=== PATIENT | male | born 1965 | race Hispanic/Latino ===

== ENCOUNTER → 2016-10-05 | Emergency (ER) | payer SELFPAY ==
[~2016-10-05] MED LIST: ATIVAN IM PRN; BENTYL PO PRN; D5/0.45NS 1,000 ML IV SCH; D50W (25GM) Vial IV PRN; D5LR 1,000 ML IV SCH; LIBRIUM PO PRN; NACL 0.9% 1000 ML 1,000 ML IV ONE; TYLENOL PO PRN; VITAMIN B-1 100 MG, FOLVITE 1 MG, INFUVITE 10 ML in NACL 0.9% 1000 ML 1,000 ML IV ONE; ZOFRAN IV PRN
--- NOTE | 2016-10-05 17:02 | Emergency Department Report ---
ED General Adult HPI - General Chief complaint: Alcohol Stated complaint: ALTERED MENTAL STATUS Time Seen by Provider: 10/05/16 17:00 Source: patient, EMS (ems notes not available at time of chart dictation) Mode of arrival: Stretcher Limitations: Other (patient is intoxicated) - History of Present Illness Initial comments: This is a 51-year-old male. He is previously unknown to me. He is brought to the hospital by EMS for alcohol intoxication. Patient reports he was drinking in a hotel room. He denies headache, neck pain, chest pain, abdominal pain, shortness of breath, irritated obstructive urinary symptoms. He denies homicidality and suicidality. -: unknown Consistency: constant Improves with: none Worsens with: none Associated Symptoms: denies other symptoms - Related Data Allergies Allergy/AdvReac Type Severity Reaction Status Date / Time No Known Allergies Allergy Unverified 10/05/16 18:33 ED Review of Systems ROS: Stated complaint: ALTERED MENTAL STATUS Other details as noted in HPI Constitutional: malaise. denies: fever Eyes: denies: vision change ENT: denies: hearing loss Respiratory: denies: cough Cardiovascular: denies: chest pain Gastrointestinal: denies: abdominal pain Genitourinary: denies: dysuria Musculoskeletal: denies: back pain Skin: denies: lesions Neurological: denies: weakness Psychiatric: anxiety, depression. denies: homicidal thoughts, suicidal thoughts ED Physical Exam - General Limitations: Other (alcohol intoxication) General appearance: alert, in no apparent distress - Head Head exam: Present: atraumatic, normocephalic - Eye Eye exam: Present: normal appearance, PERRL, EOMI. Absent: nystagmus - ENT ENT exam: Present: normal exam, normal orophraynx, mucous membranes moist, normal external ear exam - Neck Neck exam: Present: normal inspection, full ROM. Absent: tenderness, meningismus - Respiratory Respiratory exam: Present: normal lung sounds bilaterally. Absent: respiratory distress, wheezes, rales, rhonchi, stridor, chest wall tenderness - Cardiovascular Cardiovascular Exam: Present: regular rate, normal rhythm, normal heart sounds. Absent: bradycardia, tachycardia, irregular rhythm, systolic murmur, diastolic murmur, rubs, gallop - GI/Abdominal GI/Abdominal exam: Present: soft, normal bowel sounds. Absent: distended, tenderness, guarding, rebound, rigid, pulsatile mass - Rectal Rectal exam: Present: deferred - Extremities Exam Extremities exam: Present: normal inspection, full ROM, normal capillary refill. Absent: pedal edema, joint swelling, calf tenderness - Back Exam Back exam: Present: normal inspection, full ROM. Absent: tenderness, CVA tenderness (R), CVA tenderness (L), muscle spasm, paraspinal tenderness, vertebral tenderness - Neurological Exam Neurological exam: Present: alert, oriented X3, normal gait, other (Extraocular movements intact. Tongue midline. No facial droop. Facial sensation intact to light touch in the V1, V2, V3 distribution bilaterally. 5 and 5 strength in 4 extremities.. Sensation is intact to light touch in 4 extremities.). Absent : motor sensory deficit - Psychiatric Psychiatric exam: Present: normal affect, normal mood. Absent: homicidal ideation, suicidal ideation - Skin Skin exam: Present: warm, dry, intact, normal color. Absent: rash ED Course Vital Signs 10/05/16 10/05/16 10/05/16 16:52 17:23 17:30 Temperature Pulse Rate 72 73 Respiratory 21 14 13 Rate Blood Pressure 155/95 155/98 Blood Pressure [Left] O2 Sat by Pulse 95 95 94 Oximetry 10/05/16 10/05/16 10/05/16 17:33 17:34 18:00 Temperature 98.3 F Pulse Rate 78 74 Respiratory 19 19 16 Rate Blood Pressure 140/95 Blood Pressure 155/98 [Left] O2 Sat by Pulse 95 95 94 Oximetry 10/05/16 10/05/16 10/05/16 18:30 19:00 19:30 Temperature Pulse Rate 80 60 81 Respiratory 14 12 18 Rate Blood Pressure 140/95 147/95 140/95 Blood Pressure 147/95 [Left] O2 Sat by Pulse 93 97 97 Oximetry 10/05/16 10/05/16 10/05/16 20:00 21:00 22:00 Temperature Pulse Rate 86 Respiratory 11 L Rate Blood Pressure 156/101 143/86 159/102 Blood Pressure [Left] O2 Sat by Pulse 86 99 Oximetry 10/05/16 10/06/16 10/06/16 23:00 00:00 01:00 Temperature Pulse Rate 78 85 91 H Respiratory 16 15 15 Rate Blood Pressure 151/90 155/89 155/89 Blood Pressure [Left] O2 Sat by Pulse 96 96 96 Oximetry 08/17/17 08/17/17 08/17/17 02:00 03:00 03:30 Temperature Pulse Rate 82 92 H 83 Respiratory 17 14 15 Rate Blood Pressure 134/77 158/78 144/81 Blood Pressure [Left] O2 Sat by Pulse 95 96 95 Oximetry 10/06/16 10/06/16 10/06/16 03:46 04:00 04:16 Temperature Pulse Rate 72 81 84 Respiratory 13 20 18 Rate Blood Pressure 144/81 145/84 145/84 Blood Pressure [Left] O2 Sat by Pulse 96 95 96 Oximetry 10/06/16 10/06/16 10/06/16 04:30 04:46 05:00 Temperature Pulse Rate 76 79 76 Respiratory 20 15 16 Rate Blood Pressure 142/79 142/79 147/85 Blood Pressure [Left] O2 Sat by Pulse 95 95 97 Oximetry 10/06/16 10/06/16 10/06/16 05:16 05:30 05:46 Temperature Pulse Rate 77 84 93 H Respiratory 20 18 16 Rate Blood Pressure 147/85 147/85 136/86 Blood Pressure [Left] O2 Sat by Pulse 95 97 98 Oximetry 10/06/16 10/06/16 10/06/16 06:00 06:16 06:30 Temperature Pulse Rate 75 71 72 Respiratory 17 19 17 Rate Blood Pressure 144/90 144/90 144/81 Blood Pressure [Left] O2 Sat by Pulse 97 96 97 Oximetry 10/06/16 10/06/16 10/06/16 06:46 07:00 07:16 Temperature Pulse Rate 68 68 72 Respiratory 16 17 14 Rate Blood Pressure 144/81 128/79 128/79 Blood Pressure [Left] O2 Sat by Pulse 95 96 97 Oximetry 10/06/16 10/06/16 10/06/16 07:30 07:46 08:00 Temperature Pulse Rate 74 71 65 Respiratory 12 19 16 Rate Blood Pressure 128/79 152/86 146/86 Blood Pressure [Left] O2 Sat by Pulse 96 97 94 Oximetry 10/06/16 10/06/16 10/06/16 08:16 08:30 08:46 Temperature Pulse Rate 66 63 Respiratory 14 14 17 Rate Blood Pressure 146/86 135/79 146/86 Blood Pressure [Left] O2 Sat by Pulse 97 98 96 Oximetry 10/06/16 10/06/16 10/06/16 09:00 09:16 09:30 Temperature Pulse Rate Respiratory 17 12 14 Rate Blood Pressure 150/77 135/79 137/89 Blood Pressure [Left] O2 Sat by Pulse 97 98 96 Oximetry 10/06/16 10/06/16 10/06/16 09:46 10:00 10:16 Temperature Pulse Rate Respiratory 15 14 17 Rate Blood Pressure 137/89 144/88 144/88 Blood Pressure [Left] O2 Sat by Pulse 96 95 96 Oximetry 10/06/16 10/06/16 10:30 10:44 Temperature Pulse Rate 73 73 Respiratory 16 Rate Blood Pressure 144/88 Blood Pressure 144/88 [Left] O2 Sat by Pulse 97 98 Oximetry - Reevaluation(s) Reevaluation #1: 10/05/16 20:17 differential diagnosis: Intracranial injury, cervical spine injury, alcohol intoxication Assessment and plan: 51-year-old male with alcohol intoxication. He is afebrile with reassuring vital signs, and is clinically intoxicated at this time , but is not a homicidal nor suicidal. His physical examination is unremarkable , noncontrast CT scan of the brain and cervical spine were negative. Lactic acid was ordered prior to my evaluation, it is noted to be elevated. This is likely secondary to either prolonged tourniquet time, type B lactic acidosis, or alcohol consumption. He is afebrile without leukocytosis, and has an unremarkable physical exam, therefore, I don't believe the patient's critical presentation is consistent with tissue dysoxia, or serious bacterial infection. Reevaluation #2: 10/05/16 21:09 nursing staff has contacted patient's mother. The patient lives in [place]. The patient's mother reports that the patient does a lot of travel for work. She reports that she noticed that the patient is depressed, and she is concerned that the patient may take his own at some point. She reports that the patient has been missing for over a week, and has a history of alcohol binges. Given this additional collateral information, lack of local social resources, endorse complaints from the patient's mother, the patient is made a 1013 for inability to care for self, and alcohol dependence. He is placed on a ciwa protocol. Repeat elevated lactic acid is appreciated, patient's mother reports that the patient has a history of binge drinking, the patient was found in a hotel room with multiple empty bottles. Elevated lactic acid likely secondary to starvation ketosis and alcohol dependence. Reevaluation #3: 10/06/16 02:48 patient continues to have up trending lactic acid. Highly suspect that this is secondary to alcohol consumption. Case is discussed with the [facility], and I have specifically discussed the patient 's physical exam findings and laboratory studies with Vandana. She recommends an arterial blood gas on room air, and a measured and calculated serum osmolality on the original chemistry sample. I have called the laboratory and requested this to be performed. Care is transferred to the overnight physician, Dr. Katie Mcbride, follow-up on these laboratory studies and recontact the [facility] for further recommendations. ED Medical Decision Making - Lab Data Result diagrams: 10/05/16 18:19 10/06/16 07:39 Vital Signs 10/05/16 10/05/16 10/05/16 16:52 17:23 17:30 Temperature Pulse Rate 72 73 Respiratory 21 14 13 Rate Blood Pressure 155/95 155/98 Blood Pressure [Left] O2 Sat by Pulse 95 95 94 Oximetry 10/05/16 10/05/16 10/05/16 17:33 17:34 18:00 Temperature 98.3 F Pulse Rate 78 74 Respiratory 19 19 16 Rate Blood Pressure 140/95 Blood Pressure 155/98 [Left] O2 Sat by Pulse 95 95 94 Oximetry 10/05/16 10/05/16 10/05/16 18:30 19:00 19:30 Temperature Pulse Rate 80 60 81 Respiratory 14 12 18 Rate Blood Pressure 140/95 147/95 140/95 Blood Pressure 147/95 [Left] O2 Sat by Pulse 93 97 97 Oximetry Lab Results 10/05/16 10/05/16 10/05/16 Range/Units 16:34 16:34 16:34 WBC TNR RBC TNR Hgb TNR Hct TNR MCV TNR MCH TNR MCHC TNR RDW TNR Plt Count TNR Lymph % (Auto) TNR [place] % (Auto) TNR Eos % (Auto) TNR Baso % (Auto) TNR Lymph # TNR B[place]e # TNR Eos # TNR Baso # TNR Seg Neutrophils % TNR Seg Neutrophils # TNR Sodium 143 (137-145) mmol/L Potassium 3.6 (3.6-5.0) mmol/L Chloride 93.7 L (98-107) mmol/L Carbon Dioxide 21 L (22-30) mmol/L Anion Gap 32 mmol/L BUN 11 (9-20) mg/dL Creatinine 0.6 L (0.8-1.5) mg/dL Estimated GFR > 60 ml/min BUN/Creatinine Ratio 18.33 % Glucose 79 (75-100) mg/dL Lactic Acid 5.60 H* (0.7-2.0) mmol/L Calcium 8.5 (8.4-10.2) mg/dL Magnesium 2.00 (1.7-2.3) mg/dL Total Bilirubin 0.40 (0.1-1.2) mg/dL AST 48 H (5-40) units/L ALT 33 (7-56) units/L Alkaline Phosphatase 63 (35-129) units/L Total Creatine Kinase (55-170) units/L Total Protein 7.7 (6.3-8.2) g/dL Albumin 4.3 (3.9-5) g/dL Albumin/Globulin Ratio 1.3 % TSH (0.270-4.200) mlU/mL Urine Color (Yellow) Urine Turbidity (Clear) Urine pH (5.0-7.0) Ur Specific [place] (1.003-1.030) Urine Protein (Negative) mg/dL Urine Glucose (UA) (Negative) mg/dL Urine Ketones (Negative) mg/dL Urine Blood (Negative) Urine Nitrite (Negative) Urine Bilirubin (Negative) Urine Urobilinogen (<2.0) mg/dL Ur Leukocyte Esterase (Negative) Urine WBC (Auto) (0.0-6.0) /HPF Urine RBC (Auto) (0.0-6.0) /HPF U Epithel Cells (Auto) (0-13.0) /HPF Hyaline Casts /LPF Urine Mucus /HPF Salicylates (2.8-20.0) mg/dL Urine Opiates Screen Urine Methadone Screen Acetaminophen (10.0-30.0) ug/mL Ur Barbiturates Screen Ur Phencyclidine Scrn Ur Amphetamines Screen U Benzodiazepines Scrn Urine Cocaine Screen U Marijuana (THC) Screen Drugs of Abuse Note Plasma/Serum Alcohol (0-0.07) gm% 10/05/16 10/05/16 10/05/16 Range/Units 16:34 16:34 16:34 WBC RBC Hgb Hct MCV MCH MCHC RDW Plt Count Lymph % (Auto) [place] % (Auto) Eos % (Auto) Baso % (Auto) Lymph # [place] # Eos # Baso # Seg Neutrophils % Seg Neutrophils # Sodium (137-145) mmol/L Potassium (3.6-5.0) mmol/L Chloride (98-107) mmol/L Carbon Dioxide (22-30) mmol/L Anion Gap mmol/L BUN (9-20) mg/dL Creatinine (0.8-1.5) mg/dL Estimated GFR ml/min BUN/Creatinine Ratio % Glucose (75-100) mg/dL Lactic Acid (0.7-2.0) mmol/L Calcium (8.4-10.2) mg/dL Magnesium (1.7-2.3) mg/dL Total Bilirubin (0.1-1.2) mg/dL AST (5-40) units/L ALT (7-56) units/L Alkaline Phosphatase (35-129) units/L Total Creatine Kinase (55-170) units/L Total Protein (6.3-8.2) g/dL Albumin (3.9-5) g/dL Albumin/Globulin Ratio % TSH 3.160 (0.270-4.200) mlU/mL Urine Color (Yellow) Urine Turbidity (Clear) Urine pH (5.0-7.0) Ur Specific [place] (1.003-1.030) Urine Protein (Negative) mg/dL Urine Glucose (UA) (Negative) mg/dL Urine Ketones (Negative) mg/dL Urine Blood (Negative) Urine Nitrite (Negative) Urine Bilirubin (Negative) Urine Urobilinogen (<2.0) mg/dL Ur Leukocyte Esterase (Negative) Urine WBC (Auto) (0.0-6.0) /HPF Urine RBC (Auto) (0.0-6.0) /HPF U Epithel Cells (Auto) (0-13.0) /HPF Hyaline Casts /LPF Urine Mucus /HPF Salicylates < 0.3 L (2.8-20.0) mg/dL Urine Opiates Screen Urine Methadone Screen Acetaminophen < 15.0 (10.0-30.0) ug/mL Ur Barbiturates Screen Ur Phencyclidine Scrn Ur Amphetamines Screen U Benzodiazepines Scrn Urine Cocaine Screen U Marijuana (THC) Screen Drugs of Abuse Note Plasma/Serum Alcohol (0-0.07) gm% 10/05/16 10/05/16 10/05/16 Range/Units 16:34 16:34 17:33 WBC RBC Hgb Hct MCV MCH MCHC RDW Plt Count Lymph % (Auto) [place] % (Auto) Eos % (Auto) Baso % (Auto) Lymph # [place] # Eos # Baso # Seg Neutrophils % Seg Neutrophils # Sodium (137-145) mmol/L Potassium (3.6-5.0) mmol/L Chloride (98-107) mmol/L Carbon Dioxide (22-30) mmol/L Anion Gap mmol/L BUN (9-20) mg/dL Creatinine (0.8-1.5) mg/dL Estimated GFR ml/min BUN/Creatinine Ratio % Glucose (75-100) mg/dL Lactic Acid (0.7-2.0) mmol/L Calcium (8.4-10.2) mg/dL Magnesium (1.7-2.3) mg/dL Total Bilirubin (0.1-1.2) mg/dL AST (5-40) units/L ALT (7-56) units/L Alkaline Phosphatase (35-129) units/L Total Creatine Kinase 103 (55-170) units/L Total Protein (6.3-8.2) g/dL Albumin (3.9-5) g/dL Albumin/Globulin Ratio % TSH (0.270-4.200) mlU/mL Urine Color Yellow (Yellow) Urine Turbidity Clear (Clear) Urine pH 6.0 (5.0-7.0) Ur Specific [place] 1.017 (1.003-1.030) Urine Protein 30 mg/dl (Negative) mg/dL Urine Glucose (UA) Neg (Negative) mg/dL Urine Ketones 20 (Negative) mg/dL Urine Blood Neg (Negative) Urine Nitrite Neg (Negative) Urine Bilirubin Neg (Negative) Urine Urobilinogen < 2.0 (<2.0) mg/dL Ur Leukocyte Esterase Neg (Negative) Urine WBC (Auto) 1.0 (0.0-6.0) /HPF Urine RBC (Auto) 1.0 (0.0-6.0) /HPF U Epithel Cells (Auto) 1.0 (0-13.0) /HPF Hyaline Casts 1 /LPF Urine Mucus Few /HPF Salicylates (2.8-20.0) mg/dL Urine Opiates Screen Urine Methadone Screen Acetaminophen (10.0-30.0) ug/mL Ur Barbiturates Screen Ur Phencyclidine Scrn Ur Amphetamines Screen U Benzodiazepines Scrn Urine Cocaine Screen U Marijuana (THC) Screen Drugs of Abuse Note Plasma/Serum Alcohol 0.38 H (0-0.07) gm% 10/05/16 10/05/16 Range/Units 17:33 18:19 WBC 8.8 RBC 5.11 H Hgb 16.2 H Hct 48.0 H MCV 94 MCH 32 MCHC 34 RDW 15.1 Plt Count 303 Lymph % (Auto) [place] % (Auto) Eos % (Auto) Baso % (Auto) Lymph # [place] # Eos # Baso # Seg Neutrophils % Seg Neutrophils # Sodium (137-145) mmol/L Potassium (3.6-5.0) mmol/L Chloride (98-107) mmol/L Carbon Dioxide (22-30) mmol/L Anion Gap mmol/L BUN (9-20) mg/dL Creatinine (0.8-1.5) mg/dL Estimated GFR ml/min BUN/Creatinine Ratio % Glucose (75-100) mg/dL Lactic Acid (0.7-2.0) mmol/L Calcium (8.4-10.2) mg/dL Magnesium (1.7-2.3) mg/dL Total Bilirubin (0.1-1.2) mg/dL AST (5-40) units/L ALT (7-56) units/L Alkaline Phosphatase (35-129) units/L Total Creatine Kinase (55-170) units/L Total Protein (6.3-8.2) g/dL Albumin (3.9-5) g/dL Albumin/Globulin Ratio % TSH (0.270-4.200) mlU/mL Urine Color (Yellow) Urine Turbidity (Clear) Urine pH (5.0-7.0) Ur Specific [place] (1.003-1.030) Urine Protein (Negative) mg/dL Urine Glucose (UA) (Negative) mg/dL Urine Ketones (Negative) mg/dL Urine Blood (Negative) Urine Nitrite (Negative) Urine Bilirubin (Negative) Urine Urobilinogen (<2.0) mg/dL Ur Leukocyte Esterase (Negative) Urine WBC (Auto) (0.0-6.0) /HPF Urine RBC (Auto) (0.0-6.0) /HPF U Epithel Cells (Auto) (0-13.0) /HPF Hyaline Casts /LPF Urine Mucus /HPF Salicylates (2.8-20.0) mg/dL Urine Opiates Screen Presumptive negative Urine Methadone Screen Presumptive negative Acetaminophen (10.0-30.0) ug/mL Ur Barbiturates Screen Presumptive negative Ur Phencyclidine Scrn Presumptive negative Ur Amphetamines Screen Presumptive negative U Benzodiazepines Scrn Presumptive negative Urine Cocaine Screen Presumptive negative U Marijuana (THC) Screen Presumptive negative Drugs of Abuse Note Disclamer Plasma/Serum Alcohol (0-0.07) gm% - EKG Data -: EKG Interpreted by Me - EKG Data When compared to previous EKG there are: previous EKG unavailable 10/06/16 02:53 no prior sinus, 78 bpm left axis, lafb, prwp, twi inferio leads no chest pain qtc 462 ms abnormal ekg - Radiology Data Radiology results: report reviewed, image reviewed interpreted by me: xr chest negative Noncontrast CT scan of the brain and cervical spine negative for traumatic disease. Nonspecific findings noted in [facility] radi[facility], however no clinical suspicion for stroke given current history. The patient can follow up with an outpatient primary care doctor for this. Critical care attestation.: If time is entered above; I have spent that time in minutes in the direct care of this critically ill patient, excluding procedure time. ED Disposition Clinical Impression: Alcohol abuse Disposition: DC-09 OP ADMIT IP TO THIS HOSP Is pt being admited?: Yes Condition: Good Instructions: Abuse of Alcohol (ED) Referrals: PRIMARY CARE, [Primary Care Provider] - 3-5 Days
[2016-10-05 17:13] LABS: Hematocrit TNR % (35.5-45.6); Hemoglobin TNR gm/dl (11.8-15.2); Red Blood Count TNR M/mm3 (3.65-5.03); White Blood Count TNR K/mm3 (4.5-11.0)
[2016-10-05 17:14] LABS: Mean Corpuscular HGB Conc TNR % (32-34); Mean Corpuscular Hemoglobin TNR pg (28-32); Mean Corpuscular Volume TNR fl (84-94); Mean Platelet Volume TNR fl (6-12); Platelet Count TNR K/mm3 (140-440); Red Cell Distribution Width TNR % (13.2-15.2)
[2016-10-05 17:15] LABS: Basophils % (Auto) TNR % (0.0-1.8); Eosinophils % (Auto) TNR % (0.0-4.3)
[2016-10-05 17:31] LABS: Alanine Aminotransferase 33 units/L (7-56); Albumin 4.3 g/dL (3.9-5); Albumin/Globulin Ratio 1.3 %; Alkaline Phosphatase 63 units/L (35-129); Anion Gap 32 mmol/L; BUN/Creatinine Ratio 18.33; Blood Urea Nitrogen 11 mg/dL (9-20); Calcium 8.5 mg/dL (8.4-10.2); Carbon Dioxide 21 mmol/L (22-30); Chloride 93.7 mmol/L (98-107); Glucose 79 mg/dL (75-100); Potassium 3.6 mmol/L (3.6-5.0); Sodium 143 mmol/L (137-145); Total Protein 7.7 g/dL (6.3-8.2)
[2016-10-05 17:36] LABS: Urine Drugs of Abuse Note Disclamer
[2016-10-05 17:47] LABS: Bilirubin,Urine NEG (Negative); Blood,Urine NEG (Negative); Ketones,Urine 20 mg/dL (Negative); Leukocyte Esterase,Urine NEG (Negative); Mucus,Urine FEW /HPF; Nitrite,Urine NEG (Negative); Urobilinogen,Urine < 2.0 mg/dL (<2.0)
--- NOTE | 2016-10-05 17:56 | Cat Scan Report ---
FINAL REPORT PROCEDURE: CT HEAD/BRAIN WO CON TECHNIQUE: Computerized tomography of the head was performed without contrast material. HISTORY: Altered mental status. COMPARISON: No prior studies are available for comparison. FINDINGS: Skull and scalp: Normal. Paranasal sinuses: Normal. Ventricles and subarachnoid spaces: Normal. Cerebrum: No evidence of hemorrhage, acute infarction or mass. Mild atrophy. Subtle 5 millimeter area of low attenuation in the left meza radiata. Cerebellum and brainstem: No evidence of hemorrhage, acute infarction or mass. Vasculature: Mild atherosclerosis. Comments: None. IMPRESSION: Mild atrophy. Subtle area of low attenuation in the left meza radiata, may be related to chronic small vessel ischemic change. Consider MRI of the brain for further evaluation if there is continued clinical concern for subtle superimposed acute process and if patient has no contraindication to MRI.
--- NOTE | 2016-10-05 18:14 | Cat Scan Report ---
FINAL REPORT PROCEDURE: CT CERVICAL SPINE WO CON TECHNIQUE: Computerized tomography of the cervical spine was performed from the skull base to T1 without contrast material. HISTORY: etoh fall COMPARISON: No prior studies are available for comparison. FINDINGS: The vertebral body heights and alignment are maintained. No acute fracture or subluxation is seen. There are mild osteoarthritic changes of the atlantodental articulation. Mild degenerative disc changes are seen at C3-4 and C4-5. IMPRESSION: No acute fracture or subluxation is identified.
[2016-10-05 18:58] LABS: Hemoglobin 16.2 gm/dl (11.8-15.2); Mean Corpuscular HGB Conc 34 % (32-34); Mean Corpuscular Hemoglobin 32 pg (28-32); Mean Corpuscular Volume 94 fl (84-94); Platelet Count 303 K/mm3 (140-440); Red Blood Count 5.11 M/mm3 (3.65-5.03); Red Cell Distribution Width 15.1 % (13.2-15.2); White Blood Count 8.8 K/mm3 (4.5-11.0)
[2016-10-06] MEDS: VALIUM IV PRN ×2 (01:21→03:32)
--- NOTE | 2016-10-06 02:12 | XRay Report ---
FINAL REPORT EXAM: XR CHEST 1V AP HISTORY: etoh intox ? pna COMPARISON: None available. FINDINGS: Frontal view(s) of the chest obtained. Heart upper limits normal in size.. There is a nodular density projecting over the left perihilar region measuring 12 millimeters. This may reflect a prominent vessel on end or small calcified granuloma. Noncalcified pulmonary nodule cannot be entirely excluded. Otherwise, no gross consolidation or effusion. No pneumothorax. IMPRESSION: 12 millimeter indeterminate nodule projecting over the left perihilar region. Followup exam suggested to assess stability. Lungs otherwise clear.
[2016-10-06 03:14] LABS: ISTAT Base Excess -1; ISTAT DEVICE 0; ISTAT HCO3 22.4; ISTAT PH 7.466 (7.35-7.45); ISTAT PO2 74 (80-105); ISTAT SO2 96; ISTAT TCO2 23
--- NOTE | 2016-10-06 06:31 | Event Note ---
Date: 10/06/16 Discussed with the blueprinter at [facility] patient does not need any fomepizole. They want repeat labs and they wanted me to send a toxic alcohol plan. Will admit patient to the hospitalist service for follow-up of laboratory findings.
[2016-10-06 08:16] LABS: Anion Gap 17 mmol/L; Blood Urea Nitrogen 7 mg/dL (9-20); Calcium 8.2 mg/dL (8.4-10.2); Carbon Dioxide 26 mmol/L (22-30); Chloride 97.1 mmol/L (98-107); Creatine Kinase 132 units/L (55-170); Glucose 180 mg/dL (75-100); Potassium 3.3 mmol/L (3.6-5.0); Sodium 137 mmol/L (137-145)
--- NOTE | 2016-10-06 08:47 | Admit Criteria Form ---
Admission Criteria Documentation: GENERAL ADMISSION CRITERIA (Place 'X' for any and all applicable criteria): Admission is indicated for ANY ONE of the following: [X ]I. Hemodynamic instability as indicated by ANY ONE of the following(1)(2 )(3)(4)(5): [ ]a) Vital sign abnormality not readily corrected by appropriate treatment within 12 to 24 hours indicated by ANY ONE of the following: [ ]i) Hypotension [ ]ii) Symptomatic Tachycardia unresponsive to treatment (eg , analgesia, fluids, sedation as indicated) [ ]iii) Orthostatic vital sign changes unresponsive to treatment (eg, fluids) [X ]b) Vital sign abnormality that is severe indicated by ANY ONE of the following: [ X]i) Inadequate perfusion indicated by ANY ONE of the following: [X ]1) Lactic acidosis (greater than 2 mmol/L) [ ]2) New abnormal capillary refill (greater than 3 seconds) [ ]3) Other metabolic acidosis (arterial pH less than 7.35) not otherwise explained [ ]4) Reduced urine output [ ]5) Altered mental status [ ]6) Myocardial Ischemia [ ]v) Mean arterial pressure[A] less than 60 mm Hg [ ]vi) Mean arterial pressure[A] less than 70 mm Hg after 30 minutes of appropriate treatment (eg, fluid resuscitation) [ ]vii) IV inotropic or vasopressor medication required to maintain adequate blood pressure or perfusion [ ]viii) Sustained heart rate greater than 120 beats per minute in adult or child 6 years or older[B]] [ ]II. Hypertension requiring inpatient treatment as indicated by ANY ONE of the following(6)(7)(8): [ ]a) SBP greater than 220 mm Hg or DBP greater than 120 mm Hg despite treatment [ ]b) SBP greater than 140 mm Hg or DBP greater than 100 mm Hg with evidence of acute end organ damage as indicated by ANY ONE of the following: [ ]i) Encephalopathy [ ]ii) Acute renal failure as indicated by new onset of ANY ONE of the following(9)(10)(11)(12)(13): [ ]1) A 3-fold rise in serum creatinine from baseline [ ]2) Serum creatinine greater than 4 mg/dL ( 354 micromoles/L) with acute rise greater than 0.5 mg/dL (44.2 micromoles/L) [ ]3) Reduction of more than 75% in estimated glomerular filtration rate from baseline [ ]4) Estimated glomerular filtration rate less than 35 mL/min/1.73m2 (0.59 mL/sec/1.73m2) in child up to 18 years of age [ ]5) Cessation of urine output indicated by ALL of the following: [ ]A. Adequate volume status [ ]B. Inadequate urine output as indicated by ANY ONE of the following: [ ]a. Urine output less than 0.3 mL/kg/hr for 24 hours [ ]b. Anuria (urine output less than 0.1 mL/kg/hr) for 12 hours [ ]iii) Aortic dissection [ ]iv) Myocardial ischemia [ ]v) Left ventricular heart failure [ ]vi) Retinal hemorrhage [ ]vii) Other significant finding [ ]c) Hypertension in child requiring inpatient treatment as indicated by ALL of the following(14)(15)(16): [ ]i) Outpatient treatment not effective, not available, or not appropriate [ ]ii) SBP or DBP greater than 95th percentile for age [ ]iii) Evidence of acute end organ damage as indicated by ANY ONE of the following: [ ]1) Altered mental status [ ]2) Acute renal failure as indicated by new onset of ANY ONE of the following(9)(10)(11)(12)(13): [ ]A. A 3-fold rise in serum creatinine from baseline [ ]B. Serum creatinine greater than 4 mg/dL (354 micromoles/L) with acute rise greater than 0.5 mg/dL (44.2 micromoles/L) [ ]C. Reduction of more than 75% in estimated glomerular filtration rate from baseline [ ]D. Estimated glomerular filtration rate less than 35 mL/min/1.73m2 (0.59 mL/sec/1.73m2)in child up to 18 years of age [ ]E. Cessation of urine output indicated by ALL of the following: [ ]a. Adequate volume status [ ]b. Inadequate urine output as indicated by ANY ONE of the following: [ ]1) Urine output less than 0.3 mL/kg/hr for 24 hours [ ]2) Anuria (urine output less than 0.1 mL/kg/hr) for 12 hours [ ]3) Severe headache [ ]4) Visual disturbance [ ]5) Retinal hemorrhage [ ]6) Other significant finding [ ]III. Acute cardiac or peripheral ischemia as indicated by ANY ONE of the following: [ ]a) Acute coronary syndrome(17)(18) [ ]b) Acute peripheral ischemia (eg, pulseless, cool, mottled, or cyanotic extremity)(19) [ ]IV. Cardiac arrhythmias or findings of immediate concern indicated by ANY ONE of the following(20)(21): [ ]a) Heart rhythms that are inherently dangerous or unstable indicated by ANY ONE of the following(22)(23)(24): [ ]i) Resuscitated ventricular fibrillation or cardiac arrest [ ]ii) Ventricular escape rhythm [ ]iii) Sustained ventricular tachycardia (30 seconds or more of ventricular rhythm at greater than 100 beats per minute) [ ]iv) Nonsustained ventricular tachycardia and ANY ONE of the following: [ ]1) Suspected cardiac ischemia as cause or consequence of ventricular tachycardia [ ]2) In setting of acute myocarditis [ ]b) Unstable cardiac conduction defects indicated by ANY ONE of the following(24)(25)(26): [ ]i) Type II second-degree atrioventricular block [ ]ii) Third-degree atrioventricular block [ ]iii) New-onset left bundle branch block with suspected myocardial ischemia [ ]c) Any heart rhythm and ANY ONE of the following(22)(23)(27)(28)( 29): [ ] i) Continuous long-term ECG monitoring needed (eg, initiation of drug requiring monitoring for more than 24 hours) [ ] ii) Patient has automatic implanted cardioverter defibrillator that is repeatedly firing, malfunctioning, or in need of immediate adjustment of settings beyond the scope of ambulatory or observation care. [ ]d) Heart rhythms of concern due to ANY ONE of the following: [ ]i) Hypotension [ ]ii) Respiratory distress [ ]iii) Association with other significant symptoms (eg, bradycardia with syncope or ongoing dizziness, supraventricular tachycardia with chest pain) (27)(28) (30) [ ] V. Severe heart failure as indicated by ANY ONE of the following ( 31)(32): [ ]a) Respiratory distress [ ]b) Hypotension [ ]c) Anasarca (refractory to outpatient therapy) [ ]d) Cardiac arrhythmias of immediate concern [ ]e) Myocardial ischemia [ ]. Respiratory abnormalities, including ANY ONE of the following(33)(34) (35)(36): [ ]a) Respiratory rate greater than 30 breaths per minute unresponsive to treatment [A] [ ]b) New saturation of arterial oxygen less than 90% [ ]c) New partial pressure of carbon dioxide greater than 44 mm Hg ( 5.9 kPa) [ ]d) Supplemental oxygen or respiratory treatments needed that are new or not performable at other levels of care [ ]e) New-onset cyanosis [ ]f) Inability to protect airway [ ]g) Chronic lung disease with severe deterioration (not responsive to emergency and observation care treatment as appropriate) as indicated by ANY ONE of the following(34)(36 ): [ ]i) SaO2 5% below baseline in patient with chronic hypoxemia [ ]ii) New requirement for supplemental oxygen to keep SaO2 at baseline or acceptable level [ ]iii) Required supplemental oxygen performable only in acute inpatient setting [ ]iv) Severe airflow or ventilation abnormalities [ ]v) Previously mobile patient unable to walk between rooms [ ]vi Inability to eat or sleep due to dyspnea [ ]vii) Rapid rate of exacerbation onset [ ]viii) Altered mental status ]VII. Severe airflow or ventilation abnormalities (not responsive to emergency and observation care treatment as appropriate) as indicated by ANY ONE of the following(33)(34)(35)(37): [ ]a) PCO2 greater than 42 mm Hg (5.6 kPa) and pH less than 7.35 (new ) [ ]b) Documented PCO2 increased more than 5 mm Hg (0.7 kPa) from disease baseline [ ]c) Airflow measurements [B] less than 60% of previous best or predicted (eg, peak expiratory flow rate less than 300 L/minute) despite intensive emergent treatment [C] [ ]d) Required respiratory treatments that are performable only in acute inpatient setting [ ]VIII. Impending or actual respiratory arrest ( Also use Respiratory Failure GRG for severe respiratory disease and long-term mechanical ventilation patients) [ ]IX. Neurologic abnormalities, including ANY ONE of the following: [ ]a) New findings that suggest ANY ONE of the following: [ ]i) BAR CAPTAIN infection(38) [ ]ii) Cerebral bleeding, ischemia, or vasospasm(39)(40) [ ]iii) Increased intracranial pressure, hydrocephalus, or cerebral edema(41)(42)(43) [ ]iv) Spinal cord injury(44) [ ]b) Uncontrolled seizures(45) [ ]c) New-onset coma (eg, [place] coma scale score less than 9) or unexplained abnormal mental status (eg, [place] coma scale score less than 14) [D](41)(46)(47) [ ]X. New-onset severe neurologic findings requiring inpatient care; examples include(42)(48)(49): [ ]a) Papilledema [ ]b) Cerebral edema [ ]c) Mass effect on CT scan [ ]XI. Suspected acute intra-abdominal process with peritoneal signs, abdominal mass, or similar findings (50)(51)(52) [ ]XII. Severe physiologic disorder remaining after emergency or observation level care (as appropriate) as indicated by ANY ONE of the following (53): [ ]a) Significant dehydration [ ]b) Diabetic ketoacidosis [ ]c) Hyperglycemic hyperosmolar state (eg, osmolality greater than 320 mOsm/kg (mmol/kg) [ ]d) Hypoglycemia [ ]e) Other (new) acid-base disorder with pH less than 7.35 or greater than 7.5(54) [ ]f) Thyroid storm (55) [ ]g) Myxedema coma (55) [ ]XIII. Abdominal abnormalities with ANY ONE of the following(56)(57): [ ]a) Absent bowel sounds with complete ileus [ ]b) Signs of intestinal obstruction or peritonitis [E] [ ]c) Nausea and vomiting that cannot be controlled with outpatient or observation care [ ]XIV. Acute renal failure as indicated by new onset of ANY ONE of the following(9)(10)(11)(12)(13): [ ]a) A 3-fold rise in serum creatinine from baseline [ ]b) Serum creatinine greater than 4 mg/dL (354 micromoles/L) with acute rise greater than 0.5 mg/dL (44.2 micromoles/L) [ ]c) Reduction of more than 75% in estimated glomerular filtration rate from baseline [ ]d) Estimated glomerular filtration rate less than 35 mL/min/ 1.73m2 (0.59 mL/sec/1.73m2) in child up to 18 years of age [ ]e) Cessation of urine output indicated by ALL of the following: [ ]i) Adequate volume status [ ]ii) Inadequate urine output as indicated by ANY ONE of the following: [ ]1) Urine output less than 0.3 mL/kg/hr for 24 hours [ ]2) Anuria (urine output less than 0.1 mL/kg/hr) for 12 hours [ ]XV. Significant uremic complications as indicated by ANY ONE of the following(58)(59)(60): [ ]a) Outpatient therapy is ineffective or not feasible for ANY ONE of the following: [ ]i) Severe heart failure [ ]ii) Severehypertension [ ]iii) Pleural effusion [ ]iv) Pericarditis or pericardial effusion [ ]b) Cardiac arrhythmias of immediate concern [ ]c) Intractable nausea or vomiting [ ]d) Recurrent seizures [ ]e) Encephalopathy [ ]f) Bleeding abnormalities (eg, platelet dysfunction) with active (eg, gastrointestinal) bleeding [ ]g) Dialysis indicated before long-term access or ambulatory arrangements can be made [ ]h) Significant metabolic or electrolyte abnormalities (eg, severe acidosis or hyperkalemia) [ ]XVI. High fever or other high-risk infection situation as indicated by ANY ONE of the following(61)(62)(63)(64): [ ]a) Outpatient and observation care antimicrobial treatment unavailable, not effective, or not appropriate [ ]b) Documented bacteremia [ ]c) Temperature greater than 40.5 degrees C (104.9 degrees F) ( oral) [ ]d) Temperature greater than 39.5 degrees C (103.1 degrees F) ( oral) or less than 36 degrees C (96.8 degrees F) (rectal) that does not respond to e treatment and observation care [ ] XVII. Temperature less than 95 degrees F (35 degrees C)(rectal)(65) [ ] XVIII. Severe nutritional abnormalities as indicated by ALL of the following (66)(67): [ ]a) Inability to tolerate or establish sufficient oral or other enteral nutrition in outpatient setting [ ]b) Parenteral nutrition regimen need that must be implemented on inpatient basis [ ] XIX. Severe electrolyte abnormalities indicated by ALL of the following(68) (69)(70): [ ]a) Electrolytes and associated findings are not as expected for patient baseline or acceptable treatment effects. [ ]b) Severe abnormalities indicated by ANY ONE of the following: [ ]i) Sodium less than 130 mEq/L (mmol/L) (new) [ ]ii)Sodium less than 135 mEq/L (mmol/L) with ANY ONE of the following: [ ]1) Uncorrectable (to near normal or chronic baseline) after trial of outpatient and emergency treatment [ ]2) Altered mental status [ ]3) Seizures [ ]4) Severe medical etiology requiring inpatient management (eg, heart failure, hypovolemia) [ ]iii) Sodium greater than 155 mEq/L (mmol/L) [ ]iv) Sodium greater than 150 mEq/L (mmol/L) with ANY ONE of the following: [ ]1) Uncorrectable (to near normal or chronic baseline) with outpatient and emergency treatment [ ]2) Altered mental status [ ]3) Seizures [ ]4) Severe medical etiology (eg, hypovolemia, diabetes insipidus) [ ]v) Potassium less than 2.5 mEq/L (mmol/L) despite outpatient and emergency treatment [ ]vi) Potassium less than 3 mEq/L (mmol/L) with ANY ONE of the following: [ ]1) Weakness [ ]2) Cardiac abnormality (eg, arrhythmia, conduction disturbance) [ ]3) Cardiac ischemia [ ]4) Ileus [ ]5) Ongoing medical cause requiring inpatient management (eg, acute renal wasting or SIADH) [ ]6) Other severe symptoms [ ]vii) Potassium greater than 6.5 mEq/L (mmol/L) [ ]viii) Potassium greater than 5 mEq/L (mmol/L) with ANY ONE of the following: [ ]1) Uncorrectable (to near normal or chronic baseline) with outpatient and emergency treatment [ ]2) Severe ECG findings [F] [ ]3) Acute worsening of renal failure (creatinine greater than 2.5 mg/dL (221 micromoles/L) or significant elevation for age and size) [ ]4) Severe weakness [ ]5) Severe medical etiology (eg, hemolysis, infection, drug overdose) [ ]ix) Calcium less than 7 mg/dL (1.75 mmol/L) despite outpatient and emergency treatment (72) [ ]x) Calcium less than 8 mg/dL (2 mmol/L) with significant symptoms or findings; examples include(72): [ ]1) Altered mental status [ ]2) Muscle spasms [ ]3) Seizures [ ]4) Breathing difficulty [ ]5) Cardiac abnormality (eg, arrhythmia or conduction disturbance) [ ]xi) Calcium greater than 14 mg/dL (3.5 mmol/L)(72) [ ]xii) Calcium greater than 12 mg/dL (3 mmol/L) with ANY ONE of the following(72): [ ]1) Uncorrectable (to near normal or chronic baseline) with outpatient and emergency treatment [ ]2) Significant dehydration or hypovolemia as indicated by ALL of the following(70)(73)(74): [ ]A. Not resolved with initial treatments [ ]B. Clinically significant dehydration as indicated by ANY ONE of the following: [ ]a. Vomiting refractory to outpatient treatment (ie, precluding oral rehydration) [ ]b. Inability to drink [ ]c. Hypernatremia or other electrolyte abnormality unable to be corrected with outpatient and emergency treatment [ ]d. Failure to remain hydrated with outpatient therapy [ ]e. Reduced urine output [ ]f. Hypotension [ ]g. Serious cause for dehydration requiring acute hospitalization (eg, bowel obstruction, increased intracranial pressure, infectious cause) [ ]h. Child with ANY ONE of the following(75): [ ]1) Severe abdominal tenderness [ ]2) Adequate care not available at home [ ]3) Severe dehydration ( greater than 9% loss of body weight) [ ]4) Significant symptoms or findings; examples include: [ ]A. Altered mental status [ ]B. Cardiac abnormality (eg, arrhythmia, conduction disturbance) [ ]C. Malignant etiology requiring inpatient treatment [ ]xiii) Phosphorus less than 1 mg/dL (0.32 mmol/L) [ ]xiv) Phosphorus less than 1.5 mg/dL (0.48 mmol/L) with ANY ONE of the following: [ ]1) Patient unresponsive to outpatient and emergency treatment [ ]2) Significant symptoms or findings; examples include: [ ]A. Weakness [ ]B. Altered mental status [ ]C. Breathing difficulty [ ]D. Seizures [ ]E. Rhabdomyolysis [ ]xv) Phosphorus greater than 10 mg/dL (3.2 mmol/L) [ ]xvi) Phosphorus greater than 4.5 mg/dL (1.45 mmol/L) (new) with ANY ONE of the following: [ ]1) Severe medical etiology (eg, crush injury, acute renal failure) [ ]2) Associated hypocalcemia with significant findings; examples include: [ ]A. Neurologic symptoms [ ]B. Altered mental status [ ]C. Muscle spasms [ ]D. Seizures [ ]E. Breathing difficulty [ ]F. Cardiac abnormality (eg, arrhythmia, conduction disturbance) [ ]xvii) Magnesium less than 1 mg/dL (0.41 mmol/L) [ ]xviii) Magnesium less than 1.5 mg/dL (0.62 mmol/L) with ANY ONE of the following: [ ]1) Patient unresponsive to outpatient and emergency treatment [ ]2) Associated hypocalcemia with significant findings; examples include: [ ]A. Altered mental status [ ]B. Muscle spasms [ ]C. Seizures [ ]D. Breathing difficulty [ ]E. Cardiac abnormality (eg, arrhythmia , conduction disturbance) [ ]3) Associated hypokalemia (potassium less than 3 mEq/L (mmol/L)) with risk of arrhythmia [ ]xix) Magnesium greater than 4 mEq/L (2 mmol/L) [ ]xx) Magnesium greater than 2.5 mEq/L (1.25 mmol/L) with significant symptoms or findings; examples include: [ ]1) Weakness [ ]2) Altered mental status [ ]3) Cardiac abnormality (eg, arrhythmia, conduction disturbance) [ ]4) Breathing difficulty [ ]5) Severe medical etiology (eg, renal failure, hypovolemia) [ ]xxi) Uric acid greater than 20 mg/dL (1190 micromoles/L)(76) [ ]xxii) Uric acid greater than 8 mg/dL (476 micromoles/L) with significant symptoms or findings of tumor lysis syndrome; examples include(76): [ ]1) Creatinine greater than 1.5 times upper limit of normal [ ]2) Cardiac abnormality (eg, arrhythmia, conduction disturbance) [ ]3) Seizure [ ]XX. Acute blood loss causing significant abnormality as indicated by ANY ONE of the following(77)(78): [ ]a) Hemoglobin less than 10 g/dL (100 g/L) (not baseline) [ ]b) Hematocrit less than 30% (0.30) (not baseline) [ ]c) Repeat hematocrit decreased more than 2% (0.02) [ ]d) Uncontrolled bleeding [ ]XXI. Severe anemia indicated by ANY ONE of the following(78)(79): [ ]a) Altered mental status [ ]b) Chest pain [ ]c) Exertional dyspnea [ ]d) Syncope [ ]e) Other findings suggesting inadequate perfusion [ ]f) Treatment with transfusion or volume replacement is ineffective at resolving ANY ONE of the following [G]: [ ]i) Tachycardia for age [ ]ii) Orthostatic vital sign changes as indicated by ANY ONE of the following(80): [ ]1) Fall in SBP of 20 mm Hg or more 1 to 3 minutes after patient sits or stands from recumbent position [ ]2) Fall in DBP of 10 mm Hg or more 1 to 3 minutes after patient sits or stands from recumbent position [ ]XXII. High-risk low platelet count as indicated by ANY ONE of the following( 81)(82): [ ]a) Severe or life-threatening bleeding (eg, intracranial, major gastrointestinal, or extensive mucosal bleeding), with any reduced platelet count [ ]b) Platelet count less than 20,000/mm3 (20 x109/L) with any active bleeding [ ]c) Platelet count less than 10,000/mm3 (10 x109/L) with minor purpura or petechiae [ ]d) Platelet count less than 5000/mm3 (5 x109/L) [ ]e) Low platelet count with hemolytic anemia [ ]XXIII. Disseminated intravascular coagulation(77)(83) [ ]XXIV. Severe adverse drug or systemic toxin reaction requiring inpatient treatment; examples include(84)(85): [ ]a) Serotonin syndrome(86) [ ]b) Neuroleptic malignant syndrome(86) [ ]c) Cholinergic syndrome with severe symptoms (eg, bronchorrhea, weakness, mental status changes, seizures) [ ]d) Sympathetic syndrome with severe symptoms (eg, seizures, mental status changes, cardiac dysrhythmias) [ ]e) Anticholinergic syndrome [ ]XXV. Severe pain requiring acute inpatient management as indicated by ALL of the following (87)(88)(89): [ ]a) Continuous or frequent (eg, every 2 to 4 hours) parenteral analgesics required [H] [ ]b) Rapid improvement expected from treatment or acute intervention (eg, surgery, anesthesia procedure) [ ]XXVI.Severe behavioral health issues judged unmanageable at a lower level of care (eg, residential) in a patient who is ANY ONE of the following(91) [ ]a) Acutely suicidal [ ]b) A danger to self (eg, self-mutilating or suicidal behavior) [ ]c) A danger to others (eg, assaultive or homicidal behavior) [ ]d) Incapacitated because of grave disability (eg, inability to provide for self at lower level of care) (92) [ ]XXVII. Inpatient monitoring needed; examples include(1)(3)(87)(93)(94)(95)(96 ): [ ]a) Vital signs, neurologic signs, or vascular checks more frequently than every 4 hours [ ]b) Cardiac or respiratory monitoring beyond the scope (eg, over 24 hours) of observation care [ ]c) Pulmonary artery catheter monitoring [ ]d) Suspected compartment syndrome(97) (98) [ ]e) Cerebral bleeding, hydrocephalus, or vasospasm monitoring [ ]f) Increased intracranial pressure or cerebral edema monitoring [ ]g) monitoring [ ]XXVIII. Treatment requiring inpatient care; examples include: [ ]a) IV fluid to replace significant ongoing losses (greater than 3 L/m2 per day)(53) [ ]b) High concentration oxygen (greater than 40%)(33)(99)(100) [ ]c) Frequent respiratory therapy (more frequently than every 4 hours) to maintain airflow rates greater than 60% of baseline(33)(99)(100) [ ]d) Epidural analgesia(87) [ ]e) IV anticoagulation, vasoactive, or antiarrhythmic medication(19 )(23) [ ]f) Acute thrombolytics (generally require 24 hours of observation )(101)(102) [ ]XXIX. Emergency procedures needed; examples include: [ ]a) Emergency inpatient surgery [ ]b) Temporary pacemaker placement(103) [ ]c) Chest tube placement with active evacuation (eg, suction, drainage)(104) [ ]d) Emergent cardioversion(105) [ ]e) Emergent cardiac or vascular procedures (eg, cardiac catheterization, angioplasty) (17)(18) [ ]f) Emergent dialysis access placement and institution(10)(106) [ ]g) Emergent pericardiocentesis(107) [ ]h) Emergent plasmapheresis or leukapheresis(83) [ ]i) Emergent tracheostomy The original [employer] content created by [employer] has been revised. The portions of the content which have been revised are identified through the use of italic text or in bold, and [employer] has neither reviewed nor approved the modified material. All other unmodified content is copyright [employer]. Please see references footnoted in the original [employer] edition 2016 Admission Criteria Met: Yes
--- NOTE | 2016-10-06 08:55 | History and Physical Report ---
Medications and Allergies Allergies Allergy/AdvReac Type Severity Reaction Status Date / Time No Known Allergies Allergy Unverified 10/05/16 18:33 Active Meds: Active Medications Acetaminophen (Tylenol) 650 mg PO Q6HR PRN PRN Reason: Pain Chlordiazepoxide HCl (Librium) 50 mg PO Q1HR PRN PRN Reason: CIWA-Ar 8-15 Dextrose (D50w (25gm)) 50 gm IV PRN PRN PRN Reason: Hypoglycemia Diazepam (Valium) 5 mg IV Q2HR PRN PRN Reason: Alcohol Withdrawal Last Admin: 10/06/16 03:32 Dose: 5 mg Dicyclomine HCl (Bentyl) 10 mg PO Q6HR PRN PRN Reason: Pain Dextrose/Sodium Chloride (D5/0.45ns) 1,000 mls @ 0 mls/hr IV DIRECT LIZETTE PRN Reason: Wide Open Last Admin: 10/05/16 22:10 Dose: 999 mls/hr Dextrose/Lactated Ringer's (D5lr) 1,000 mls @ 100 mls/hr IV DIRECT LIZETTE Last Admin: 10/06/16 02:32 Dose: 100 mls/hr Ondansetron HCl (Zofran) 4 mg IV Q6HR PRN PRN Reason: Nausea Exam - Constitutional Vitals: Temp Pulse Resp BP Pulse Ox 98.3 F 92 H 14 158/78 96 10/05/16 17:33 10/06/16 03:00 10/06/16 03:00 10/06/16 03:00 10/06/16 03:00 Results - Labs CBC & Chem 7: 10/05/16 18:19 10/06/16 07:39 Labs: Laboratory Last Values WBC 8.8 K/mm3 (4.5-11.0) 10/05/16 18:19 RBC 5.11 M/mm3 (3.65-5.03) H 10/05/16 18:19 Hgb 16.2 gm/dl (11.8-15.2) H 10/05/16 18:19 Hct 48.0 % (35.5-45.6) H 10/05/16 18:19 MCV 94 fl (84-94) 10/05/16 18:19 MCH 32 pg (28-32) 10/05/16 18:19 MCHC 34 % (32-34) 10/05/16 18:19 RDW 15.1 % (13.2-15.2) 10/05/16 18:19 Plt Count 303 K/mm3 (140-440) 10/05/16 18:19 Lymph % (Auto) TNR 10/05/16 16:34 [place] % (Auto) TNR 10/05/16 16:34 Eos % (Auto) TNR 10/05/16 16:34 Baso % (Auto) TNR 10/05/16 16:34 Lymph # TNR 10/05/16 16:34 [place] # TNR 10/05/16 16:34 Eos # TNR 10/05/16 16:34 Baso # TNR 10/05/16 16:34 Seg Neutrophils % TNR 10/05/16 16:34 Seg Neutrophils # TNR 10/05/16 16:34 POC ABG pH 7.466 (7.35-7.45) H 10/06/16 03:04 POC ABG pCO2 31.0 (35-45) L 10/06/16 03:04 POC ABG pO2 74 (80-105) L 10/06/16 03:04 POC ABG HCO3 22.4 10/06/16 03:04 POC ABG Total CO2 23 10/06/16 03:04 POC ABG O2 Sat 96 10/06/16 03:04 POC ABG Base Excess -1 10/06/16 03:04 FiO2 21 % 10/06/16 03:04 Sodium 137 mmol/L (137-145) 10/06/16 07:39 Potassium 3.3 mmol/L (3.6-5.0) L 10/06/16 07:39 Chloride 97.1 mmol/L (98-107) L 10/06/16 07:39 Carbon Dioxide 26 mmol/L (22-30) 10/06/16 07:39 Anion Gap 17 mmol/L 10/06/16 07:39 BUN 7 mg/dL (9-20) L 10/06/16 07:39 Creatinine 0.5 mg/dL (0.8-1.5) L 10/06/16 07:39 Estimated GFR > 60 ml/min 10/06/16 07:39 BUN/Creatinine Ratio 14.00 % 10/06/16 07:39 Glucose 180 mg/dL (75-100) H 10/06/16 07:39 POC Glucose 245 (70-105) H 10/06/16 01:43 Ketones Quantitative Negative (Negative) 10/06/16 05:16 Osmolality 313 Mosm/kg 10/06/16 03:29 Lactic Acid 2.60 mmol/L (0.7-2.0) H* 10/06/16 07:39 Calcium 8.2 mg/dL (8.4-10.2) L 10/06/16 07:39 Magnesium 2.00 mg/dL (1.7-2.3) 10/05/16 16:34 Total Bilirubin 0.40 mg/dL (0.1-1.2) 10/05/16 16:34 AST 48 units/L (5-40) H 10/05/16 16:34 ALT 33 units/L (7-56) 10/05/16 16:34 Alkaline Phosphatase 63 units/L (35-129) 10/05/16 16:34 Ammonia 65.0 umol/L (25-60) H 10/06/16 07:39 Total Creatine Kinase 132 units/L (55-170) 10/06/16 07:39 Total Protein 7.7 g/dL (6.3-8.2) 10/05/16 16:34 Albumin 4.3 g/dL (3.9-5) 10/05/16 16:34 Albumin/Globulin Ratio 1.3 % 10/05/16 16:34 TSH 3.160 mlU/mL (0.270-4.200) 10/05/16 16:34 Urine Color Yellow (Yellow) 10/05/16 17:33 Urine Turbidity Clear (Clear) 10/05/16 17:33 Urine pH 6.0 (5.0-7.0) 10/05/16 17:33 Ur Specific [place] 1.017 (1.003-1.030) 10/05/16 17:33 Urine Protein 30 mg/dl mg/dL (Negative) 10/05/16 17:33 Urine Glucose (UA) Neg mg/dL (Negative) 10/05/16 17:33 Urine Ketones 20 mg/dL (Negative) 10/05/16 17:33 Urine Blood Neg (Negative) 10/05/16 17:33 Urine Nitrite Neg (Negative) 10/05/16 17:33 Urine Bilirubin Neg (Negative) 10/05/16 17:33 Urine Urobilinogen < 2.0 mg/dL (<2.0) 10/05/16 17:33 Ur Leukocyte Esterase Neg (Negative) 10/05/16 17:33 Urine WBC (Auto) 1.0 /HPF (0.0-6.0) 10/05/16 17:33 Urine RBC (Auto) 1.0 /HPF (0.0-6.0) 10/05/16 17:33 U Epithel Cells (Auto) 1.0 /HPF (0-13.0) 10/05/16 17:33 Hyaline Casts 1 /LPF 10/05/16 17:33 Urine Mucus Few /HPF 10/05/16 17:33 Salicylates < 0.3 mg/dL (2.8-20.0) L 10/05/16 16:34 Urine Opiates Screen Presumptive negative 10/05/16 17:33 Urine Methadone Screen Presumptive negative 10/05/16 17:33 Acetaminophen < 15.0 ug/mL (10.0-30.0) 10/05/16 16:34 Ur Barbiturates Screen Presumptive negative 10/05/16 17:33 Ur Phencyclidine Scrn Presumptive negative 10/05/16 17:33 Ur Amphetamines Screen Presumptive negative 10/05/16 17:33 U Benzodiazepines Scrn Presumptive negative 10/05/16 17:33 Urine Cocaine Screen Presumptive negative 10/05/16 17:33 U Marijuana (THC) Screen Presumptive negative 10/05/16 17:33 Drugs of Abuse Note Disclamer 10/05/16 17:33 Plasma/Serum Alcohol < 0.01 gm% (0-0.07) 10/06/16 07:39
--- NOTE | 2016-10-06 09:39 | Short Stay Summary ---
<MACK POWER - Last Filed: 10/06/16 14:52> Short Stay Documentation Date of service: 10/06/16 Narrative H&P: This is a 51-year-old male with no past medical history who presents to emergency department by EMS. Patient was drinking alcohol in the hotel room and have found lying down in the floor and was brought to the hospital by EMS for alcohol intoxication. Patient does not remembered what happened, they only thing can recall is being in a hotel room and drinking . He denies headache, neck pain, chest pain, abdominal pain, shortness of breath, irritated obstructive urinary symptoms. He denies homicidality and suicidality. - History Principal diagnosis: Alcohol intoxication, lactic acidosis, Hypokalemia and Alcohol abuse Past Medical History: No medical history Past Surgical History: No surgical history Social history: Lives alone, alcohol abuse, no smoking, no prescription drug abuse, no IV drug use - Allergies and Medications Current Medications: Allergies No Known Allergies Allergy (Unverified 10/05/16 18:33) Active Medications Acetaminophen (Tylenol) 650 mg PO Q6HR PRN PRN Reason: Pain Chlordiazepoxide HCl (Librium) 50 mg PO Q1HR PRN PRN Reason: CIWA-Ar 8-15 Dextrose (D50w (25gm)) 50 gm IV PRN PRN PRN Reason: Hypoglycemia Diazepam (Valium) 5 mg IV Q2HR PRN PRN Reason: Alcohol Withdrawal Last Admin: 10/06/16 03:32 Dose: 5 mg Dicyclomine HCl (Bentyl) 10 mg PO Q6HR PRN PRN Reason: Pain Dextrose/Sodium Chloride (D5/0.45ns) 1,000 mls @ 0 mls/hr IV DIRECT LIZETTE PRN Reason: Wide Open Last Admin: 10/05/16 22:10 Dose: 999 mls/hr Dextrose/Lactated Ringer's (D5lr) 1,000 mls @ 100 mls/hr IV DIRECT LIZETTE Last Admin: 10/06/16 02:32 Dose: 100 mls/hr Ondansetron HCl (Zofran) 4 mg IV Q6HR PRN PRN Reason: Nausea - Physical exam General appearance: no acute distress Integumentary: no rash HEENT: PERRLA Lungs: Clear to auscultation Breasts: deferred Heart: Regular rate, Normal S1 Gastrointestinal: normal Male Genitourinary: deferred Female Genitourinary: deferred Rectal Exam: deferred Extremities: no ischemia Neurological: Normal gait, Normal speech, Strength at 5/5 X4 ext - Hospital course Hospital course: This is a 51-year-old male with no past medical history who presents to emergency department by EMS. Patient was drinking alcohol in the hotel room and have found lying down in the floor and was brought to the hospital by EMS for alcohol intoxication. Patient was diagnosed with Alcohol intoxication, lactic acidosis, Hypokalemia Alcohol abuse. CT of the head no evidence of hemorrhage or infarction or mass. X-ray no gross consolidation or effusion, no pneumothorax. CT of cervical spine no acute fracture or subluxation is identified. Patient lab work to have found elevated lactic acide, ammonia and plasma serum alcohol. He was treated with IV fluid hydration, oral potassium supplement and IV thiamine infusion. patient currently alert and oriented to place, time and situation. Patient is clinically improved and stable for discharge. I have instructed him and need to avoid alcohol use and possibly a role in AA for which the patient verbalized understanding. Patient advised to follow-up with her primary care provider. Discharge Diagnosed Alcohol intoxication lactic acidosis Hypokalemia Alcohol abuse - Disposition Condition at discharge: Good Disposition: DC-09 OP ADMIT IP TO THIS [facility] Short Stay Discharge Plan Follow up with: PRIMARY CARE, [Primary Care Provider] - 3-5 Days <LAN FONG R - Last Filed: 10/08/16 07:36> Short Stay Documentation - Allergies and Medications Current Medications: Allergies No Known Allergies Allergy (Unverified 10/05/16 18:33) Active Medications Acetaminophen (Tylenol) 650 mg PO Q6HR PRN PRN Reason: Pain Chlordiazepoxide HCl (Librium) 50 mg PO Q1HR PRN PRN Reason: CIWA-Ar 8-15 Dextrose (D50w (25gm)) 50 gm IV PRN PRN PRN Reason: Hypoglycemia Diazepam (Valium) 5 mg IV Q2HR PRN PRN Reason: Alcohol Withdrawal Last Admin: 10/06/16 03:32 Dose: 5 mg Dicyclomine HCl (Bentyl) 10 mg PO Q6HR PRN PRN Reason: Pain Dextrose/Sodium Chloride (D5/0.45ns) 1,000 mls @ 0 mls/hr IV DIRECT LIZETTE PRN Reason: Wide Open Last Admin: 10/05/16 22:10 Dose: 999 mls/hr Dextrose/Lactated Ringer's (D5lr) 1,000 mls @ 100 mls/hr IV DIRECT LIZETTE Last Admin: 10/06/16 02:32 Dose: 100 mls/hr Ondansetron HCl (Zofran) 4 mg IV Q6HR PRN PRN Reason: Nausea - Hospital course Hospital course: Pt. was initially 1013 that was rescinded by psych. I saw and evaluated the patient. I agree with the findings and the plan of care as documented in the Nurse Practitioner's~note, with the following corrections and additions.
[2016-10-06 10:44] VITALS: BP 144/88
--- NOTE | 2016-10-06 19:02 | Consultation ---
History of Present Illness - Reason for Consult Consult date: 10/06/16 Reason for consult: [facility] Evalution Requesting physician: DIEGO WOODWARD - Chief Complaint Chief complaint: "I am ready to go" - History of Present Psychiatric Illness This is a 51-year-old male. He was brought to the hospital by EMS for alcohol intoxication. Today patient is calm and cooperative during assessment. He stated that he does not know the detail why he was brought to [facility] by EMS. Patient is in town as a general surgeon. He stated that he was intoxicated and that maybe the reason EMS was called. He stated that he been drinking alcohol (etoh) for 20 plus yrs and drink everyday. He stated that he drink alcohol (etoh) because he like the "taste." I spoke with his mother Bobbi Mujica [phone] and she stated that her son need to get help for his addiction. He denies a psy hx of depression/bipolar. He denies SI/HI's, AVH's, and depression symptoms. He stated that he will join and a [facility] rehab services when he return home to [place]. He denies recreational drug use. Medications and Allergies Allergies Allergy/AdvReac Type Severity Reaction Status Date / Time No Known Allergies Allergy Unverified 10/05/16 18:33 Active Meds: Active Medications Acetaminophen (Tylenol) 650 mg PO Q6HR PRN PRN Reason: Pain Chlordiazepoxide HCl (Librium) 50 mg PO Q1HR PRN PRN Reason: CIWA-Ar 8-15 Dextrose (D50w (25gm)) 50 gm IV PRN PRN PRN Reason: Hypoglycemia Diazepam (Valium) 5 mg IV Q2HR PRN PRN Reason: Alcohol Withdrawal Last Admin: 10/06/16 03:32 Dose: 5 mg Dicyclomine HCl (Bentyl) 10 mg PO Q6HR PRN PRN Reason: Pain Dextrose/Sodium Chloride (D5/0.45ns) 1,000 mls @ 0 mls/hr IV DIRECT LIZETTE PRN Reason: Wide Open Last Admin: 10/05/16 22:10 Dose: 999 mls/hr Dextrose/Lactated Ringer's (D5lr) 1,000 mls @ 100 mls/hr IV DIRECT LIZETTE Last Admin: 10/06/16 02:32 Dose: 100 mls/hr Ondansetron HCl (Zofran) 4 mg IV Q6HR PRN PRN Reason: Nausea Past psychiatric history - Past Medical History Past Medical History: No medical history Past Surgical History: No surgical history - past Psychiatric treatment and history psychiatric treatment history: Denies a psy hx. Father - Alcoholic. - Social History Social history: Lives alone, other (HS Graduate) Mental Status Exam - Vital signs Last Vital Signs Temp 98.3 F 10/05/16 17:33 Pulse 73 10/06/16 10:44 Resp 16 10/06/16 10:30 BP 144/88 10/06/16 10:44 Pulse Ox 98 10/06/16 10:44 - Exam Narrative exam: ROS: (-) depression MSE: Appearance: calm, cooperative Behavior: regular eye contact Speech: regular rate and tone Mood: "okay" Affect: congruent to mood Thought Process: linear Thought Content: denies SI/HI's and AVH's Motor Activity: lying in bed Cognition: A/Ox 3 Insight: fair Judgment: fair Results Result Diagrams: 10/05/16 18:19 10/06/16 07:39 Abnormal lab results 10/05/16 10/06/16 10/06/16 Range/Units 20:00 00:23 01:43 POC ABG pH (7.35-7.45) POC ABG pCO2 (35-45) POC ABG pO2 (80-105) Potassium (3.6-5.0) mmol/L Chloride (98-107) mmol/L BUN (9-20) mg/dL Creatinine (0.8-1.5) mg/dL Glucose (75-100) mg/dL POC Glucose 245 H (70-105) Lactic Acid 5.70 H* 6.10 H* (0.7-2.0) mmol/L Calcium (8.4-10.2) mg/dL Ammonia (25-60) umol/L 10/06/16 10/06/16 10/06/16 Range/Units 03:04 07:39 07:39 POC ABG pH 7.466 H (7.35-7.45) POC ABG pCO2 31.0 L (35-45) POC ABG pO2 74 L (80-105) Potassium 3.3 L (3.6-5.0) mmol/L Chloride 97.1 L (98-107) mmol/L BUN 7 L (9-20) mg/dL Creatinine 0.5 L (0.8-1.5) mg/dL Glucose 180 H (75-100) mg/dL POC Glucose (70-105) Lactic Acid 2.60 H* (0.7-2.0) mmol/L Calcium 8.2 L (8.4-10.2) mg/dL Ammonia (25-60) umol/L 10/06/16 Range/Units 07:39 POC ABG pH (7.35-7.45) POC ABG pCO2 (35-45) POC ABG pO2 (80-105) Potassium (3.6-5.0) mmol/L Chloride (98-107) mmol/L BUN (9-20) mg/dL Creatinine (0.8-1.5) mg/dL Glucose (75-100) mg/dL POC Glucose (70-105) Lactic Acid (0.7-2.0) mmol/L Calcium (8.4-10.2) mg/dL Ammonia 65.0 H (25-60) umol/L All other labs normal. Assessment and Plan Assessment and plan: Impression: Alcohol Use DO. Today patient is calm and cooperative during assessment. DDx: R/O Bipolar, R/O MDD Recommendatuion/Plan: Rescind 1013. Patient can follow-up with outpatient rehab services once discharged. Patient is willing to attend AA. Discussed the importance to abstain from alcohol consumption.
== END | disposition admitted as inpatient to this hospital (09) ==
LOC: ED 15:25
DX: F10.10 Alcohol abuse, uncomplicated (principal)
CPT/HCPCS: 36415; 70450; 72125; 80053; 80307; 81001; 82140; 82550; 83735; 84443; 85025; 85027; 96365; 96366; 96375; 99285; G0480; J3411; J7030; 71010; 80048; 80320; 82010; 82693; 82803; 82962; 83930; J3360; J7121

== ENCOUNTER 2016-10-07 12:51 | Emergency (ER) | payer OTHER ==
[2016-10-07] MEDS ORDERED: VITAMIN B-1 100 MG, FOLVITE 1 MG, INFUVITE 10 ML in NACL 0.9% 1000 ML 1,000 ML IV ONE (14:08)
[2016-10-07] MEDS ORDERED: NACL 0.9% 1000 ML 1,000 ML IV ONE ×2 (14:08→19:05)
--- NOTE | 2016-10-07 14:16 | Emergency Department Report ---
HPI - General Chief Complaint: Alcohol Time Seen by Provider: 10/07/16 14:08 - HPI HPI: This is a 51-year-old male presents to the emergency department after he was found lethargic in his hotel room and it appears to be alcohol intoxication as he was found next to 2 empty bottles of Black velvet whiskey. The patient was here 2 days ago for the same. There is a small abrasion and/or not expanding hematoma just above the left eye. The patient admits to some type of head trauma. He apparently does not have any other past medical history but he has a psychiatric history of depression and this alcohol abuse. Otherwise at this time the patient is a poor historian secondary to his suspected alcohol intoxication. ED Past Medical Hx - Past Medical History Previous Medical History?: Yes Hx Psychiatric Treatment: Yes (Depression and ETOH abuse) Additional medical history: Mother reports depression and binge drinking - Social History Smoking Status: Never Smoker Substance Use Type: None ED Review of Systems ROS: Stated complaint: ETOH Other details as noted in HPI Comment: Unobtainable due to pts medical conditions Physical Exam - Physical Exam Physical Exam: GENERAL: The patient is well-developed well-nourished. HENT: Normocephalic. Patient has moist mucous membranes. EYES: Extraocular motions are intact. Pupils equal, round and reactive to light. NECK: Supple. Trachea is midline. CHEST/LUNGS: Clear to auscultation. There is no respiratory distress noted. HEART/CARDIOVASCULAR: Regular. There is no tachycardia. There is no gallop rub or murmur. ABDOMEN: Abdomen is soft, nontender. Patient has normal bowel sounds. There is no abdominal distention. SKIN: There is a small circular skin abrasion and a non-expanding hematoma just above the left eye. NEURO: The patient appears acutely intoxicated but is arousable. The patient is cooperative. No motor or sensory deficits.. MUSCULOSKELETAL: There is no tenderness or deformity. There is no limitation range of motion. There is no evidence of acute injury. ED Medical Decision Making - Lab Data Result diagrams: 10/07/16 14:16 10/07/16 14:16 - Medical Decision Making 51-year-old male who is recently well known to this department presents it again after being found drunk and "unresponsive" in a hotel room. The patient does appear acutely intoxicated but is arousable and mostly cooperative. He presents with a small skin abrasion and not especially hematoma over the left eye. I attempted to order a CT scan of the head without contrast but the patient refused. Since patient did have a CT scan of the head as well as the cervical spine a few days ago, I allowed him to refuse despite his intoxication and he will be reevaluated for this minor head injury when he is more sober. Other than a blood alcohol level of 0.39, the rest of his blood work is mostly unremarkable. He has been given IV fluid resuscitation including a banana bag with thiamine and multivitamin. He will remain in the emergency department as a 2013 until he is sober or family comes to take care of him, which is not likely. This will be signed out to my colleague. - Differential Diagnosis alcohol intoxication, polysubstance abuse Critical Care Time: No Critical care attestation.: If time is entered above; I have spent that time in minutes in the direct care of this critically ill patient, excluding procedure time. ED Disposition Clinical Impression: Alcohol abuse Alcohol intoxication Qualifiers: Complication of substance-induced condition: uncomplicated Qualified Code(s): F10.920 - Alcohol use, unspecified with intoxication, uncomplicated Disposition: DC-01 TO HOME OR SELFCARE Is pt being admited?: No Condition: Stable Instructions: Alcohol Intoxication (ED), Abuse of Alcohol (ED) Additional Instructions: Please try and avoid any further alcohol abuse and/or intoxication. Return to the emergency Department with any worsening of her symptoms or any acute distress. Referrals: [facility] [Outside] - [facility] [Outside] - [facility] Time of Disposition: 19:10
[2016-10-07 14:36] LABS: Hematocrit 44.8 % (35.5-45.6); Mean Corpuscular HGB Conc 34 % (32-34); Mean Corpuscular Hemoglobin 32 pg (28-32); Mean Corpuscular Volume 95 fl (84-94); Platelet Count 240 K/mm3 (140-440); Red Blood Count 4.74 M/mm3 (3.65-5.03); White Blood Count 5.9 K/mm3 (4.5-11.0)
[2016-10-07 14:49] LABS: Alanine Aminotransferase 37 units/L (7-56); Albumin/Globulin Ratio 1.4 %; Alkaline Phosphatase 56 units/L (35-129); Anion Gap 21 mmol/L; Blood Urea Nitrogen 5 mg/dL (9-20); Carbon Dioxide 25 mmol/L (22-30); Chloride 101.8 mmol/L (98-107); Glucose 92 mg/dL (75-100); Lipase 52 units/L (13-60); Potassium 3.2 mmol/L (3.6-5.0); Sodium 145 mmol/L (137-145); Total Protein 6.8 g/dL (6.3-8.2)
[2016-10-07] MEDS ORDERED: K-DUR PO ONE ×2 (15:00→21:03)
[2016-10-07 15:30] LABS: Blastocytes % (Manual) 0 %
[2016-10-07 15:31] LABS: Diff Status Complete; Platelet Estimate Consistent w Auto; RBC Morphology Normal
[2016-10-07 17:06] LABS: Urine Drugs of Abuse Note Disclamer
[2016-10-07 17:15] LABS: Bilirubin,Urine NEG (Negative); Blood,Urine SM (Negative); Ketones,Urine TR mg/dL (Negative); Leukocyte Esterase,Urine NEG (Negative); Mucus,Urine 3+ /HPF; Nitrite,Urine NEG (Negative); Protein,Urine <15 mg/dL mg/dL (Negative); Urobilinogen,Urine < 2.0 mg/dL (<2.0); WBC,Urine < 1.0 /HPF (0.0-6.0)
--- NOTE | 2016-10-07 17:56 | Cat Scan Report ---
FINAL REPORT EXAM: CT HEAD/BRAIN WO CON HISTORY: Head injury while drunk TECHNIQUE: Standard unenhanced CT of the head at 5.0 millimeter axial increments. PRIORS: CT head 10/05/2016 FINDINGS: The ventricular system is normal in size and configuration. There is no evidence for parenchymal volume loss. There is low-density periventricular white matter around the left frontal horn and coronal radiata. These findings are stable and suggest small vessel ischemic changes. There is no evidence for mass lesion, mass effect, midline shift, acute intracranial hemorrhage, or acute ischemia/ infarction. No evidence for acute skull fracture is seen. There is mild soft tissue scalp swelling over the left frontal region.. Visualized paranasal sinuses are clear. IMPRESSION: Small vessel ischemic changes again noted in the left periventricular white matter. Mild scalp swelling over the left frontal region. No acute intracranial process noted. No change.
[2016-10-08 14:41] VITALS: BP 151/86
--- NOTE | 2016-10-08 15:54 | Consultation ---
History of Present Illness - Reason for Consult Consult date: 10/08/16 Reason for consult: psychiatric evaluation, 2013 - Chief Complaint Chief complaint: "I am not suicidal or homicidal." + This is a 51-year-old male presents to the emergency department after he was found lethargic in his hotel room and it appears to be alcohol intoxication as he was found next to 2 empty bottles of Black velvet whiskey. The patient was here 2 days ago for the same. A 2013 was signed by the ER physician. At the time of this evaluation, his ETOH level is negative. He has asked the nurse repeatedly if he can go. He states he has a flight to [place], where he lives. He states he was intoxicated but had no intention of harming himself. He voices a plan to attend AA meetings. Medications and Allergies Allergies Allergy/AdvReac Type Severity Reaction Status Date / Time No Known Allergies Allergy Unverified 10/05/16 18:33 Past psychiatric history - past Psychiatric treatment and history psychiatric treatment history: seen in the ER 2 days prior for the same. He denies a history of depression or anxiety. no suicide attempts reported - Social History Social history: alcohol abuse Mental Status Exam - Vital signs Last Vital Signs Temp 98.5 F 10/07/16 19:57 Pulse 89 10/08/16 14:09 Resp 18 10/08/16 14:09 BP 151/86 10/08/16 14:09 Pulse Ox 100 10/08/16 14:09 - Exam Orientation: time, place, person Affect: normal Mood: appropriate Thought content: other (no SI, no HI) Thought Process: Intact Perceptions: none Speech: normal rate and pattern Concentration: focused Motor activity: normal Level of consciousness: alert Memory: Intact Sleep Symptoms: None Interaction: cooperative Results Result Diagrams: 10/07/16 14:16 10/07/16 14:16 All other labs normal. Assessment and Plan Assessment and plan: Impression: alcohol use disorder, no signs of withdrawal alcohol level repeated and <0.01 No imminent risk of self harm or harm to others. He is not intoxicated. He voiced his plan to follow up with AA meetings in [place]. REcommendation: Rescind 2013 and follow up with AA meetings in [place], 90 in 90 days. Abstain from all mood altering and illicit substances.
== END 2016-10-08 14:41 | disposition home or self-care (01) ==
LOC: ED 12:51
DX: F10.920 Alcohol use, unspecified with intoxication, uncomplicated (principal); S00.212A Abrasion of left eyelid and periocular area, initial encounter; X58.XXXA Exposure to other specified factors, initial encounter; Y93.9 Activity, unspecified; Y92.9 Unspecified place or not applicable; Y99.9 Unspecified external cause status
CPT/HCPCS: 36415; 70450; 80053; 80307; 81001; 83690; 83735; 85007; 85025; 96361; 96365; 96366; 99284; G0480; J3411; J7030; 80320